=== PATIENT | female | born 1955 | race Caucasian/White ===

== ENCOUNTER 2017-09-08 20:25 | Emergency (ER) | payer BC ==
--- NOTE | 2017-09-08 21:43 | EDPHY ---
H & P Stated Complaint: headache HPI/ROS: HPI CHIEF COMPLAINT: Headache HISTORY OF PRESENT ILLNESS: This patient is 62-year-old female, presents emergency room with headache, dizziness and hypertension. Patient reports that she has been feeling very anxious going through a lot of stress recently. She reports to me that over the past 3 days she has been having "a migraine headache "she distally reports that she has been undergoing physical therapy for recent jaw all issue complicated from a dental procedure. She recently on had neck manipulation and massage. She reports to me that ever since then she developed a headache. She currently denies dizziness. She denies chest pain or shortness of breath. She does feel very anxious. She decided to take her blood pressure this evening and had 190 systolic blood pressure. This prompted her come the emergency room. Patient denies double vision. Denies neck pain. Denies trouble speaking. Denies focal numbness or tingling. Denies focal weakness. She denies fever. Chest pain or shortness of breath at this time. Past Medical History: Gout Past Surgical History: Appendectomy Social History: Denies daily use of drugs alcohol tobacco products. Retired resides here in [place]. Family History: Noncontributory ROS REVIEW OF SYSTEMS: A comprehensive 10 point review of systems is otherwise negative aside from elements mentioned in the history of present illness. Exam Constitutional appears well nontoxic triage nursing summary reviewed, vital signs reviewed, awake/alert. Eyes normal conjunctivae and sclera, EOMI, PERRLA. HENT neck exam no carotid bruit, normal inspection, atraumatic, moist mucus membranes, no epistaxis, neck supple/ no meningismus, no raccoon eyes. Respiratory clear to auscultation bilaterally, normal breath sounds, no respiratory distress, no wheezing. Cardiovascular rate normal, regular rhythm, no murmur, no edema, distal pulses normal. Gastrointestinal soft, non-tender, no rebound, no guarding, normal bowel sounds, no distension, no pulsatile mass. Genitourinary no CVA tenderness. Musculoskeletal no midline vertebral tenderness, full range of motion, no calf swelling, no tenderness of extremities, no meningismus, good pulses, neurovascularly intact. Skin pink, warm, & dry, no rash, skin atraumatic. Neurologic awake, alert and oriented x 3, AAOx3, moves all 4 extremities equally, motor intact, sensory intact, CN II-XII intact, normal cerebellar, normal vision, normal speech. Psychiatric normal mood/affect. Heme/Lymph/Immune no lymphadenopathy. Differential Diagnosis: Includes but is not limited to in a particular order acute anxiety, panic attack, vertebral artery dissection, posterior circulation stroke, migraine headache, tension headache, cluster headache, renal failure, electrolyte disturbance Medical Decision Making: Plan for this patient check blood work, IV established with IV fluid bolus, IV Ativan for anxiety, EKG, troponin, CT head without contrast for headache, CT angiogram head and neck given neck pain elevation and then subsequent headache and some dizziness. Re-evaluation: EKG interpretation by me on record in [employer] system. Impression time of EKG 2211. Sinus rhythm rate of 77. No acute ischemic change appreciated. CT scan head without contrast negative for acute abnormality or bleed. Called to me by Dr. Watson CT angiogram head and neck with IV contrast for dizziness, recent neck manipulation negative for any dissection or abnormality of the arteries in the brain and neck. Called to me by Dr. Watson. 2357: Re-evaluation at this time this patient is resting comfortably no acute distress. She is feeling better after IV Ativan. Her blood pressure is down 159/67. Blood work is reassuring. Negative troponin. Nonischemic EKG. CT head, CT angiogram head and neck are unremarkable. I do feel that she can go home. ED x-ray chest one view: Negative for acute cardiopulmonary disease. I do recommend she follows up with primary care doctor about anxiety, and blood pressure. Additionally return emergency room if there is worsening symptoms questions or concerns including headache, fever, vomiting, chest pain, shortness of breath, very high blood pressure or feeling worse. She understands. Source: Patient - Personal History Current Tetanus/Diphtheria Vaccine: No - Medical/Surgical History Hx Asthma: No Hx Chronic Respiratory Disease: No Hx Diabetes: No Hx Cardiac Disease: No Hx Renal Disease: No Hx Cirrhosis: No Hx Alcoholism: No Hx HIV/AIDS: No Hx Splenectomy or Spleen Trauma: No Other PMH: PMHx: gout/GERD/appy/hashimotos/insulin resistant. PSHx: appy - Social History Smoking Status: Former smoker Constitutional: Initial Vital Signs Temperature (C) 37.2 C 09/08/17 20:40 Heart Rate 78 09/08/17 20:40 Respiratory Rate 16 09/08/17 20:40 Blood Pressure 191/79 H 09/08/17 20:40 O2 Sat (%) 98 09/08/17 20:40 O2 Delivery Mode Room Air Allergies/Adverse Reactions: No Known Allergies Allergy (Unverified 03/13/15 15:39) Home Medications: Medication Instructions Recorded Allopurinol 03/13/15 Pepcid 03/13/15 Synthroid 03/13/15 Medical Decision Making - Diagnostics Imaging Results: Imaging Impressions Head CT 09/08/17 22:01 Impression: Normal. Report telephoned to Dr. Lau at 2305 hours. - Data Points Laboratory Results: Laboratory Results 09/08/17 21:45 09/08/17 21:45 09/08/17 09/08/17 09/08/17 21:45 21:45 21:45 WBC 6.44 10^3/uL 10^3/uL (3.80-9.50) RBC 4.91 10^6/uL 10^6/uL (4.18-5.33) Hgb 15.1 g/dL g/dL (12.6-16.3) Hct 44.6 % % (38.0-47.0) MCV 90.8 fL fL (81.5-99.8) MCH 30.8 pg pg (27.9-34.1) MCHC 33.9 g/dL g/dL (32.4-36.7) RDW 13.2 % % (11.5-15.2) Plt Count 198 10^3/uL 10^3/uL (150-400) MPV 10.5 fL fL (8.7-11.7) Neut % (Auto) 60.2 % % (39.3-74.2) Lymph % (Auto) 30.6 % % (15.0-45.0) Rains % (Auto) 6.7 % % (4.5-13.0) Eos % (Auto) 1.2 % % (0.6-7.6) Baso % (Auto) 1.1 % % (0.3-1.7) Nucleat RBC Rel Count 0.0 % % (0.0-0.2) Absolute Neuts (auto) 3.88 10^3/uL 10^3/uL (1.70-6.50) Absolute Lymphs (auto) 1.97 10^3/uL 10^3/uL (1.00-3.00) Absolute Monos (auto) 0.43 10^3/uL 10^3/uL (0.30-0.80) Absolute Eos (auto) 0.08 10^3/uL 10^3/uL (0.03-0.40) Absolute Basos (auto) 0.07 10^3/uL 10^3/uL (0.02-0.10) Absolute Nucleated RBC 0.00 10^3/uL 10^3/uL (0-0.01) Immature Gran % 0.2 % % (0.0-1.1) Immature Gran # 0.01 10^3/uL 10^3/uL (0.00-0.10) PT 13.0 SEC SEC (12.0-15.0) INR 0.99 (0.83-1.16) APTT 27.7 SEC SEC (23.0-38.0) Sodium 139 mEq/L mEq/L (134-144) Potassium 3.9 mEq/L mEq/L (3.5-5.2) Chloride 99 mEq/L mEq/L (97-110) Carbon Dioxide 29 mEq/l mEq/l (22-31) Anion Gap 11 mEq/L mEq/L (8-16) BUN 16 mg/dL mg/dL (7-23) Creatinine 1.0 mg/dL mg/dL (0.6-1.0) Estimated GFR 56 Glucose 95 mg/dL mg/dL (70-100) Calcium 11.0 mg/dL H mg/dL (8.5-10.4) Phosphorus 4.1 mg/dL mg/dL (2.5-4.5) Magnesium 2.3 mg/dL mg/dL (1.6-2.3) Total Bilirubin 0.2 mg/dL mg/dL (0.1-1.4) Conjugated Bilirubin 0.0 mg/dL mg/dL (0.0-0.5) Unconjugated Bilirubin 0.2 mg/dL mg/dL (0.0-1.1) AST 28 IU/L IU/L (14-46) ALT 41 IU/L IU/L (9-52) Alkaline Phosphatase 107 IU/L IU/L (38-126) Creatine Kinase 64 IU/L IU/L (0-156) CK-MB (CK-2) Fraction 0.96 ng/mL ng/mL (0.00-3.19) Troponin I < 0.012 ng/mL ng/mL (0.000-0.034) NT-Pro-B Natriuret Pep 46 pg/mL pg/mL (0-125) Total Protein 7.7 g/dL g/dL (6.3-8.2) Albumin 4.8 g/dL g/dL (3.5-5.0) Medications Given: Discontinued Medications Sodium Chloride (Ns) 1,000 mls @ 0 mls/hr IV EDNOW ONE; Wide Open PRN Reason: Protocol Stop: 09/08/17 22:02 Last Admin: 09/08/17 22:18 Dose: 1,000 mls Lorazepam (Ativan Injection) 0.5 mg IVP EDNOW ONE Stop: 09/08/17 22:06 Last Admin: 09/08/17 22:19 Dose: 0.5 mg Departure - Departure Disposition: Home, Routine, Self-Care Clinical Impression: Anxiety Hypertension Qualifiers: Hypertension type: unspecified Qualified Code(s): I10 - Essential (primary) hypertension Condition: Good Instructions: Anxiety (ED), Hypertension (ED) Additional Instructions: 1. Return emergency room if he develops worsening symptoms questions or concerns. 2. Follow up with her primary care doctor. Referrals: MABEL LEIGH [Other] - As per Instructions
[2017-09-08] MEDS ORDERED: NS 1,000 ML IV ONE (22:01)
[2017-09-08] MEDS ORDERED: IOPAMIDOL (ISOVUE 370) 100 ML BTL IV ONE (22:04)
[2017-09-08] MEDS ORDERED: LORazepam 2 MG/ML INJ IVP ONE (22:05)
[2017-09-08 22:12] LABS: % IMMATURE GRANULYOCYTES 0.2 % (0.0-1.1); ABSOLUTE IMMATURE GRANULOCYTES 0.01 10^3/uL (0.00-0.10); ADD DIFF? NO; ADD MORPH? NO; ADD SCAN? NO; ATYPICAL LYMPHOCYTE FLAG 0 (0-99); FRAGMENT RBC FLAG 0 (0-99); HEMATOCRIT 44.6 % (38.0-47.0); HEMOGLOBIN 15.1 g/dL (12.6-16.3); LEFT SHIFT FLG 0 (0-99); LIPEMIA HEMOLYSIS FLAG 90 (0-99); MEAN CELL HEMOGLOBIN 30.8 pg (27.9-34.1); MEAN CELL HEMOGLOBIN CONCENTR. 33.9 g/dL (32.4-36.7); MEAN CELL VOLUME 90.8 fL (81.5-99.8); MEAN PLATELET VOLUME 10.5 fL (8.7-11.7); PLATELET CLUMPS FLAG 0 (0-99); PLATELET COUNT 198 10^3/uL (150-400); RED BLOOD CELL COUNT 4.91 10^6/uL (4.18-5.33); RED CELL DISTRIBUTION WIDTH 13.2 % (11.5-15.2)
--- NOTE | 2017-09-08 22:14 | CPEKG ---
Heart Rate: 77 RR Interval: 779 P-R Interval: 124 QRSD Interval: 86 QT Interval: 368 QTC Interval: 417 P Dana: 4 QRS Dana: 21 T Wave Dana: 54 EKG Severity - NORMAL ECG - EKG Impression: SINUS RHYTHM Electronically Signed By: José Miguel Wilson 08-Sep-2017 22:49:20
[2017-09-08 22:15] LABS: INR 0.99 (0.83-1.16)
[2017-09-08 22:16] LABS: APTT 27.7 SEC (23.0-38.0)
[2017-09-08 22:23] LABS: ALANINE AMINOTRANSFERASE 41 IU/L (9-52); ALBUMIN 4.8 g/dL (3.5-5.0); ALKALINE PHOSPHATASE 107 IU/L (38-126); ANION GAP 11 mEq/L (8-16); ASPARTATE AMINOTRANSFERASE 28 IU/L (14-46); BILIRUBIN,TOTAL 0.2 mg/dL (0.1-1.4); BILIRUBIN-UNCONJUGATED 0.2 mg/dL (0.0-1.1); CARBON DIOXIDE 29 mEq/l (22-31); CHLORIDE 99 mEq/L (97-110); GLOMERULAR FILTRATION RATE 56; GLUCOSE 95 mg/dL (70-100); MAGNESIUM 2.3 mg/dL (1.6-2.3); POTASSIUM 3.9 mEq/L (3.5-5.2); SODIUM 139 mEq/L (134-144); TOTAL PROTEIN 7.7 g/dL (6.3-8.2)
[2017-09-08 22:34] LABS: CREATINE KINASE-MB FRACTION 0.96 ng/mL (0.00-3.19); TROPONIN I < 0.012 ng/mL (0.000-0.034)
[2017-09-08 23:25] VITALS: RESP 16
[2017-09-09 00:21] VITALS: BP 167/87; PULSE 85; TEMP 98.4; O2SAT 98
== END 2017-09-09 00:20 | disposition home or self-care (01) ==
DX: F41.9 Anxiety disorder, unspecified (principal); I10 Essential (primary) hypertension; E86.9 Volume depletion, unspecified; Z87.891 Personal history of nicotine dependence
CPT/HCPCS: 96374; J2060; Q9967